=== PATIENT | male | born 1985 | race Caucasian/White ===

== ENCOUNTER 2022-12-09 06:47 | Outpatient (REF) | payer BC, SELFPAY ==
[2022-12-09 11:10] LABS: MANUAL DIFF FLAG NO
[2022-12-09 11:19] LABS: Basophils Absolute Auto 0.1 X10*3/uL (0.0-0.2); Eosinophils Absolute Auto 0.6 X10*3/uL (0.0-0.4); Eosinophils Percent Auto 11.7 % (0-4); Hematocrit 43.1 % (42.0-52.0); Hemoglobin 14.7 g/dl (14.0-18.0); Imm Gran Abs Auto 0.01 X10*3/uL (0.00-0.03); Imm Gran Pct Auto 0.2 % (0.0-0.4); Lymphocytes Absolute Auto 1.9 X10*3/uL (1.2-4.9); Lymphocytes Percent Auto 37.9 % (20-40); Mean Corpuscular HGB Conc 34.1 g/dl (31.0-36.0); Mean Corpuscular Hemoglobin 32.3 pg (27.0-33.0); Mean Corpuscular Volume 94.7 fL (80.0-98.0); Mean Platelet Volume 10.1 fL (9.4-12.4); Monocytes Absolute Auto 0.5 X10*3/uL (0.1-1.2); Monocytes Percent Auto 9.8 % (2-11); Neutrophils Percent Auto 39.4 % (45-73); Platelet Count 219 X10*3/uL (160-400); Red Blood Count 4.55 X10*6/uL (4.60-5.80); Red Cell Distribution Width 11.9 % (11.0-16.0); White Blood Count 5.1 X10*3/uL (4.8-10.8)
[2022-12-09 11:40] LABS: Appearance Urine Turbid; Color Urine Yellow; Glucose Urine UA Negative (Negative); Leukocyte Esterase Urine Negative (Negative); Nitrite Urine Negative (Negative); PH 8.5 (5.0-9.0); Urine Blood Negative (Negative); Urine Ketones Negative (Negative); Urine Protein Negative (Neg-Trace)
[2022-12-09 13:11] LABS: Alanine Aminotransferase 15 U/L (0-40); Albumin Level 4.1 g/dL (3.5-5.0); Alkaline Phosphatase 45 U/L (39-117); Anion Gap 8 (12-20); Aspartate Amino Transferase 16 U/L (5-37); Bilirubin Total 0.7 mg/dL (0.0-1.0); Blood Urea Nitrogen 16 mg/dL (9-16); Carbon Dioxide 30 mmol/L (22-29); Chloride 106 mmol/L (96-108); Cholesterol 152 mg/dL; Estimated Glomerular Filt Rate > 60; Glucose Fasting 94 mg/dL (60-99); HDL Cholesterol 45 mg/dL; LDL Cholesterol Calculated 100 mg/dl; Potassium 4.6 mmol/L (3.3-5.1); Sodium 139 mmol/L (135-145); Total Protein 6.1 g/dL (6.5-8.0); Triglycerides 35 mg/dL
[2022-12-09 13:12] LABS: Creatinine Urine 145.76 mg/dL; Microalbumin Urine < 5.0 mg/L
[2022-12-09 13:30] LABS: TSH reflex Free T4 0.78 uIU/mL (0.32-4.0)
[2022-12-11 04:13] LABS: Syphilis Screen Nonreactive (Nonreactive)
[2022-12-11 04:25] LABS: HBS Num1 90.55 mIU/mL (0-7.99); HBc Num1 0.08 S/CO (0.00-0.79); HIV AB/AG Nonreactive (Nonreactive); HIV Num 1 0.07 S/CO (0.00-0.99); Hepatitis B Core Antibody Nonreactive (Nonreactive); Hepatitis B Surface Antigen Negative (Negative); ~HepC Num1 0.15 S/CO (0.00-0.79); ~Hepatitis B Surface Antibody REACTIVE (Nonreactive); ~Hepatitis C Antibody Nonreactive (Nonreactive)
== END 2022-12-09 06:48 | disposition home or self-care (01) ==
LOC: HO.HMGCLDS 06:47
PROVIDERS: PCP Family Medicine; Visit Provider Family Medicine
DX: Z00.00 Encounter for general adult medical examination without abnormal findings (principal); I10 Essential (primary) hypertension; Z20.2 Contact with and (suspected) exposure to infections with a predominantly sexual mode of transmission
CPT/HCPCS: 36415; 80053; 80061; 81003; 82043; 84443; 85025; 86704; 86706; 86780; 86803; 87340; 87389

== ENCOUNTER 2023-03-07 15:00 | Outpatient (RCR) | payer BC, SELFPAY ==
--- NOTE | 2023-01-11 17:47 | MHC.PT.EP ---
[facility] [place] [facility] [place] Office [place] Office [address] Cristiano Lopez [address] [phone] F: [phone] F: [phone] F: [phone] F: [phone] Physical Therapy Plan of Care Date of Evaluation: Date of Surgery: Diagnosis: B foot and knee pain. Assessment: Pt is a 37 y/o male referred to PT for eval and treat of B foot and knee pain resulting in decreased tolerance for preferred fitness activity of running, standing for duration, as well as squatting, hopping, and jumping activities, hopping and jumping secondary to decreased hip and ankle strength, foot posture, increased B LE tissue tension, and pain. Pt is deemed an appropriate candidate to receive skilled PT services to address their physical impairments in order to improve their functional ability. Frequency and Duration: The patient will be seen 1 x/ wk x 8 wks. Short Term Goals: Initiate home program with evidence of compliance. Improve baseline pain with activity to at most 1-3/10; initial: 2-6/10. Cytopathology Technologist Goals: I with home program. Pt will be able to stand for 1 hour with managed Sx. initial: moderate difficulty. Pt will report no difficulty running on even ground; initial: moderate difficulty. Improve glute med strength by at least 1/2 MMT grade; initial 4/5 B. Treatment Plan: Modalities to reduce pain, spasms and effusion. Manual therapy to restore motion and function. Therapeutic exercise to improve strength and flexibility. Neuromuscular re-education for posture and balance. Therapeutic activities to return to functional activities of daily living. Electronically signed by: Gerardo Melgoza PT. Please sign and return to therapist. Thank you for your referral.
--- NOTE | 2023-06-01 10:47 | MHC.PT.DC ---
[facility] [place] [facility] [place] Office [place] Office [address] Cristiano Lopez [address] [phone] F: [phone] F: [phone] F: [phone] F: [phone] Physical Therapy Discharge Report Diagnosis: B foot and knee pain. Date of Surgery: Date of Evaluation: 01/11/23 Date of Discharge: 06/01/23 Treatments to Date: 4 Cancellations to Date: No Shows to Date: Discharge Status: Improved Function Independent with HEP Patient Elected to Stop Discharge Summary: Pt did not attend his last visit for final assessment Last Tx note below. 03/07: Reports he has been more consistent with his program and notices his feet and running has been more comfortable. 1 visit to DC . No adverse effects. to Tx. Electronically signed by: Gerardo Melgoza PT. Please sign and return to therapist. Thank you for your referral.
== END 2023-06-01 10:48 | disposition home or self-care (01) ==
LOC: HO.PTCHIC 15:00
PROVIDERS: PCP Family Medicine; Visit Provider Family Medicine
DX: M79.671 Pain in right foot (principal); M79.672 Pain in left foot; M25.561 Pain in right knee; M25.562 Pain in left knee
CPT/HCPCS: 97110; 97112; 97161

== ENCOUNTER 2024-06-06 10:47 | Outpatient (AMB) | payer BC, SELFPAY ==
--- NOTE | 2024-06-06 10:51 | MHC.PC.OV ---
Vital Signs 06/06/24 10:53 Height 6 ft 3 in Weight 207 lb 2 oz BMI 25.9 BP 110/66 Blood Pressure Location Lt brachial Position Sitting Respiration 16 Pulse 69 Pulse Source Pulse Oximeter Temp 97.7 F Temp Source Tympanic Pulse Oximetry (%) 96 Oxygen Delivery Method Room Air Intake Visit Reasons: Bruise on shoulder Intake Note: bruise rt bicep Allergies shellfish Allergy (Intermediate, Uncoded 12/18/22 16:10) throat swelling Tobacco use date assessed: 12/18/22 HPI Bruise on shoulder HPI Details 38 y/o male presents today with complaints of a bruise on his R biceps. He notes he had woken up with this. Reports some slight discomfort. Does not remember an exact moment he may have hurt his arm. He notes bruise showed up just over a week ago. Discomfort started in November. HPI Comments History of Present Illness Details Documentation assistance for Loi Groves MD, was provided by Jim Mendosa,? Parachute Panel Joiner on 06/06/2024 at 11:06 AM EST. I, Dr. Groves, have read, observed, and verified documentation. [facility] Medical History No pertinent past medical history Surgical History H/O left inguinal hernia repair Social History Patient Tobacco Use Status: Never used Tobacco e-Cigarette/Vaping Use: Never Used Second Hand Smoke Exposure: No service: No Current occupational status: employed Current occupational exposures/hazards: No Cognitive needs: No Hearing needs: No Vision needs: No Questionnaire PROSPER-7 AMB Questionnaire PROSPER-7 Date PROSPER - 7 assessed: 09/28/22 Source: Developed by Drs. Farrukh Johnson, Karen Hays, Boone Dailey and colleagues, with an educational kiana from [employer]. Review of Systems Const Denies chills, Denies fatigue, Denies fever(s), Denies headache(s) and Denies weakness ENT Denies dizziness and Denies headache(s) Card Denies dyspnea Resp Denies cough, Denies dyspnea, Denies wheezing and Denies other (shortness of breath) Musc Details: R arm discomfort Denies numbness and Denies tingling Neuro Denies dizziness, Denies headache(s), Denies numbness, Denies tingling and Denies weakness Psych Denies anxiety and Denies depression Endo Denies fatigue Aller/Immun Denies wheezing Physical exam (Primary Care) Vital Signs: Last Vital Signs Temp 97.7 F 06/06/24 10:53 Pulse 69 06/06/24 10:53 Resp 16 06/06/24 10:53 BP 110/66 06/06/24 10:53 Pulse Ox 96 06/06/24 10:53 Oxygen Delivery Method Room Air 06/06/24 10:53 BMI result Body Mass Index 25.9 Tobacco/Smoking Status: Tobacco use Status Tobacco use date assessed 12/18/22 06/06/24 10:55 Patient Tobacco Use Status Never used Tobacco 06/06/24 10:55 e-Cigarette/Vaping Use Never Used 06/06/24 10:55 Const General: well developed; No acute distress Nutritional Appearance: well nourished Orientation/consciousness: patient oriented x3 HENMT Head: Yes normocephalic and Yes atraumatic Eyes General: appearance normal, both eyes and all related structures Pupils: Equal, round and reactive pupils present EOM: EOMs intact bilaterally Resp Effort & Inspection: normal respiratory effort Neuro General: patient oriented x3 and gait normal Cranial nerves: Yes Equal, round and reactive pupils present Psych Affect: normal affect Assessment and Plan Assessment & Plan (1) Strain of right upper arm: Code(s): S46.911A - Strain of unspecified muscle, fascia and tendon at shoulder and upper arm level, right arm, initial encounter Plan: Mild?tenderness?over?insertion?of?short?head?of?biceps?at?coracoid?process?with?some?dependent?bruising. Patient?is?able?to?flex?arm?at?elbow?and?shoulder - this?does?not?appear?to?be?a?complete?rupture Can?use?ice?and?NSAIDs Will?check?x-ray?to?rule?out?other?process Start?physical?therapy If?not?improving?or?worsens,?will?refer?to?ortho Orders: Orders XR shoulder RT min 2V Today S46.911A - Strain of unspecified muscle, fascia and tendon at shoulder and upper arm level, right arm, initial encounter PT Evaluation and Treatment Today S46.911A - Strain of unspecified muscle, fascia and tendon at shoulder and upper arm level, right arm, initial encounter Coding Level of Care Code Est Pt Level 3 (29741) Diagnoses Strain of right upper arm S46.911A
[2024-06-06 10:53] VITALS: BP 110/66; PULSE 69; RESP 16; TEMP 36.5; O2SAT 96; BMI 25.9
== END 2024-06-06 11:08 | disposition home or self-care (01) ==
PROVIDERS: PCP Family Medicine; Visit Provider Family Medicine
DX: S46.911A Strain of unspecified muscle, fascia and tendon at shoulder and upper arm level, right arm, initial encounter (principal)
CPT/HCPCS: 99213

== ENCOUNTER 2024-12-17 15:57 | Outpatient (AMB) | payer BC, SELFPAY ==
--- NOTE | 2024-12-17 16:10 | MHC.PC.OV ---
Vital Signs 12/17/24 16:17 Height 6 ft 1 in Weight 203 lb BMI 26.8 BP 120/78 Blood Pressure Location Lt brachial Position Sitting Respiration 14 Pulse 53 Pulse Source Pulse Oximeter Temp 97.6 F Temp Source Oral Pulse Oximetry (%) 97 Oxygen Delivery Method Room Air Intake Visit Reasons: CPE with f/u labs and health maint. Intake Note: cpe pt did not get labs he was advised to get fasting labs at his convenience Tour Coordinator Required: No Allergies shellfish Allergy (Intermediate, Uncoded 12/18/22 16:10) throat swelling Medication List - Last Reconciled 12/17/24 by Loi Groves MD albuterol sulfate 90 mcg/actuation (Ventolin HFA) 2 puffs inhalation Q4-6H PRN 30 days dextroamphetamine-amphetamine 20 mg ER 1 cap PO QAM Tobacco use date assessed: 12/17/24 Dental Screening Dental Screen Date: 12/17/24 Did you have a dental visit in the last 12 months?: Yes Did you have a dental problem in the last 6 months where you did not have access to dental care?: No Was dental information given to patient?: Yes HPI CPE with f/u labs and health maint. HPI Details 39 y/o male presents for a CPE with f/u labs and health maintenance. No recent labs to review. Reports L 5th finger dislocation playing soccer. [facility] Medical History No pertinent past medical history Surgical History H/O left inguinal hernia repair Social History Patient Tobacco Use Status: Never used Tobacco e-Cigarette/Vaping Use: Never Used Second Hand Smoke Exposure: No service: No Current occupational status: employed Current occupational exposures/hazards: No Cognitive needs: No Hearing needs: No Vision needs: No Questionnaire PHQ-9 Over the last 2 weeks, how often have you been bothered by any of the following problems? 1. Little interest or pleasure in doing things: not at all 2. Feeling down, depressed, or hopeless: not at all 3. Trouble falling or staying asleep, or sleeping too much: not at all 4. Feeling tired or having little energy: not at all 5. Poor appetite or overeating: not at all 6. Feeling bad about yourself - or that you are a failure or have let yourself or your family down: not at all 7. Trouble concentrating on things, such as reading the newspaper or watching television: not at all 8. Moving or speaking so slowly that other people could have noticed. Or the opposite - being so fidgety or restless that you have been moving around a lot more than usual: not at all 9. Thoughts that you would be better off or of hurting yourself in some way: not at all Total score: 0 Depression Screening Interpretation: Negative Depression Screening Done: Yes 54219 - PHQ-9 Billing: Yes Source: Developed by Drs. Farrukh Johnson, Karen Hays, Boone Dailey and colleagues, with an educational kiana from [employer]. Thrive Questionnaire Date Thrive assessed: 12/17/24 I am a: Patient What is your living situation today?: I have a steady place to live Within the past 12 months, did the food you bought not last and you didn't have the money to get more?: Never true Within the past 12 months, did you worry whether your food would run out before you got money to buy more?: Never true Do you have trouble paying for medicines?: No Do you have trouble getting transportation to medical appointments?: No Do you have trouble paying your heating and electricity bill?: No Do you have trouble taking care of your child, family member or friend?: No Do you have trouble with day-to-day activities such as bathing, preparing meals, shopping, managing finances, etc.?: No Are you currently unemployed and looking for a job?: No Are you interested in more education?: No Please select the resources that you would like help with: None Currently or been in a relationship where the following occur: No concerns reported THRIVE Score: 0 AUDIT C Alcohol Use Questionnaire (AUDIT-C) 1. How often do you have a drink containing alcohol?: Never 2. How many drinks containing alcohol do you have on a typical day when you are drinking?: 1 or 2 3. How often do you have six or more drinks on one occasion?: Never Total Score: 0 Score Reviewed/Action Taken: Yes PROSPER-7 AMB Questionnaire PROSPER-7 Date PROSPER - 7 assessed: 12/17/24 Feeling nervous, anxious, or on edge: 0 = Not at all Not being able to stop or control worryin = Not at all Worrying too much about different things: 0 = Not at all Trouble relaxin = Not at all Being so restless that it is hard to sit still: 0 = Not at all Becoming easily annoyed or irritable: 0 = Not at all Feeling afraid as if something awful might happen: 0 = Not at all Total PROSPER-7 score (0-4 normal; 5-9 mild; 10-14 moderate; 15-21 severe): 0 Source: Developed by Drs. Farrukh Johnson, Karen Hays, Boone Dailey and colleagues, with an educational kiana from [employer]. PROSPER-7 Assessment Billing PROSPER-7 Assessment Tool: PROSPER-7 Assessment 32666 Review of Systems Const Denies chills, Denies fatigue, Denies fever(s), Denies headache(s) and Denies weakness Eyes Denies change in vision ENT Denies dizziness, Denies headache(s), Denies hearing loss, Denies nasal congestion, Denies sinus pain, Denies sinus pressure and Denies sore throat Card Denies chest pain, Denies lightheadedness, Denies dyspnea and Denies other (palpitations) Resp Denies cough, Denies dyspnea and Denies wheezing GI Denies abdominal pain, Denies melena, Denies hematochezia, Denies change in bowel habits, Denies dyspepsia and Denies nausea Denies hematuria and Denies dysuria Musc Denies abnormal gait, Denies myalgias, Denies arthralgias, Denies numbness and Denies tingling Skin/Breast Denies rash, Denies unusual bruising and Denies wounds Neuro Denies abnormal gait, Denies dizziness, Denies headache(s), Denies memory loss, Denies numbness, Denies Sensory deficit (Neuro), Denies tingling and Denies weakness Psych Denies anxiety, Denies depression and Denies memory loss Endo Denies cold intolerance, Denies fatigue, Denies heat intolerance, Denies polydipsia and Denies polyuria Irvin/Lymph Denies easy bleeding and Denies easy bruising Aller/Immun Denies wheezing Physical exam (Primary Care) Vital Signs: Last Vital Signs Temp 97.6 F 12/17/24 16:17 Pulse 53 12/17/24 16:17 Resp 14 12/17/24 16:17 BP 120/78 12/17/24 16:17 Pulse Ox 97 12/17/24 16:17 Oxygen Delivery Method Room Air 12/17/24 16:17 BMI result Body Mass Index 26.8 Tobacco/Smoking Status: Tobacco use Status Tobacco use date assessed 12/17/24 12/17/24 16:13 Patient Tobacco Use Status Never used Tobacco 12/17/24 16:13 e-Cigarette/Vaping Use Never Used 12/17/24 16:13 PHQ-9: PHQ-9 Score PHQ-9: Total score 0 12/17/24 16:13 Depression Screening Interpretation: Negative Thrive Assessment: Date of Thrive Assessment Date Thrive assessed 12/17/24 12/17/24 16:13 Currently or been in a relationship where the following occur: No concerns reported Const General: no acute distress, well developed, alert and awake Nutritional Appearance: well nourished Orientation/consciousness: patient oriented x3 HENMT Head: Yes normocephalic and Yes atraumatic Ears: hearing grossly normal bilaterally and TM's normal bilaterally General nose exam: Normal external nose present and Normal nares present Mouth: Normal oral and palatal mucosa present and moist mucous membranes Teeth and gingiva: dentition normal Throat: Yes posterior oropharynx normal Eyes General: appearance normal, both eyes and all related structures Pupils: Equal, round and reactive pupils present and Pupil accommodation reflex normal EOM: EOMs intact bilaterally Neck Neck: Yes normal visual inspection, Yes no lymphadenopathy and Yes trachea midline Thyroid: Thyroid normal Carotids: no bruits Lymphatic: no lymphadenopathy noted Chest Chest palpation & inspection: normal inspection of the chest Resp Effort & Inspection: normal respiratory effort Auscultation: clear to auscultation bilaterally Cardio Rate: regular rate Rhythm: regular rhythm Heart sounds: S1 normal heart sound present, S2 normal heart sound present, no gallops, no murmurs and no rubs Bruits: no abdominal aortic bruits and no carotid bruits GI Palpation (GI): No Abdominal aortic bruit present, Soft to palpation, nontender, No hepatosplenomegaly present and No Rebound tenderness present Auscultation: normal bowel sounds General: Yes no CVA tenderness Back/Spine/Pelvis Back: no CVA tenderness Cervical Spine: cervical ROM normal and No Cervical spine tenderness Thoracic/Lumbar Spine: thoraco-lumbar ROM normal, No pain with thoraco-lumbar ROM, No thoracic spinal tenderness and No lumbar spinal tenderness Skin Other: 5 mm melanotic lesion at posterior proximal calf Lesions: no lesions Rashes: no rashes Trauma: no lacerations or abrasions Wounds: no wounds Nails: normal Neuro General: patient oriented x3 Cranial nerves: Yes Equal, round and reactive pupils present Cognition (Neuro): normal cognition Gait exam (Neuro): Normal gait present Motor exam (neuro): 5/5 motor strength present throughout Sensory Exam: No Sensory deficit (Neuro) Deep tendon reflexes (DTR's): Right patellar reflex intensity grade: 2+ and Left patellar reflex intensity grade: 2+ Extrem General: Yes normal to inspection and No edema Psych Appearance: grossly normal Affect: normal affect Attitude: cooperative Thought process: Normal thought process present Coding Level of Care Code Est Pt Level 3 (13273) Est Pt Prev Care 18-39y(21578) Diagnoses Adult general medical exam Z00.00 Difficulty concentrating R41.840 Asthma J45.909 Family planning Z30.09 Urinary hesitancy R39.11 Dislocation, finger S63.259A Neoplasm of uncertain behavior of skin D48.5 Abdominal pain R10.9 Additional Codes PROSPER-7 Assessment Billing - PROSPER-7 Assessment Tool: PROSPER-7 Assessment [id number] ([id number]) PHQ-9 - 43692 - PHQ-9 Billing: Yes ([id number]) Assessment & Plan Assessment & Plan (1) Adult general medical exam: Code(s): Z00.00 - Encounter for general adult medical examination without abnormal findings Category: Medical Plan: 39-year-old?male?presents?for?complete?physical?exam Encouraged?healthy?diet?with?lifestyle?and?exercise (2) Difficulty concentrating: Code(s): R41.840 - Attention and concentration deficit Category: Medical Plan: Patient?has?a?provider?for?Adderall Stable (3) Asthma: Code(s): J45.909 - Unspecified asthma, uncomplicated Category: Medical Plan: Somewhat?worsened?asthma?lately. Avoid?triggers Pre?treat?before?exercise Humidified?air Discontinue?vaping (4) Family planning: Code(s): Z30.09 - Encounter for other general counseling and advice on contraception Category: Social Hx Plan: Patient?would?like?referral?to?urology?for?consideration?of?vasectomy-referred (5) Urinary hesitancy: Code(s): R39.11 - Hesitancy of micturition Category: Medical Plan: Can?follow-up?with?Urology I?am?checking?PSA?level (6) Dislocation, finger: Code(s): S63.259A - Unspecified dislocation of unspecified finger, initial encounter Category: Medical Plan: Traumatic?dislocation?of?left?5th?finger?and?subsequent?spontaneous?dislocations Referred?to?hand?surgeon (7) Neoplasm of uncertain behavior of skin: Code(s): D48.5 - Neoplasm of uncertain behavior of skin Category: Medical Plan: 0.5?cm melanotic?lesion?at?posterior?proximal?calf Referred?to?dermatology (8) Abdominal pain: Code(s): R10.9 - Unspecified abdominal pain Category: Medical Plan: Abdominal?pain?and?history?of?hernia?repair No?definitive?hernia?is?palpated?however?does?have?some?abnormality?of?lower?abdominal?wall - possibly?secondary?to?repair Check?ultrasound May?need?referral?to?General?surgery Orders: Orders US pelvic limited Today R10.9 - Unspecified abdominal pain Referrals Urology Referral Z30.09 - Encounter for other general counseling and advice on contraception Hand Surgery Referral S63.259A - Unspecified dislocation of unspecified finger, initial encounter Dermatology Referral D48.5 - Neoplasm of uncertain behavior of skin Medications: New famotidine 40 mg PO BEDTIME 30 days 30 tabs 0RF
[2024-12-17 16:17] VITALS: BP 120/78; PULSE 53; RESP 14; TEMP 36.4; O2SAT 97; BMI 26.8
--- OUTSIDE RECORDS SUMMARY | 2024-12-17 19:05 | XMS_ITS | Clinical Summary ---
[facility] Organization [facility] Address [address] [place] [address] Care Team Providers Care Twister In Name Role Phone Maykel Beatty MD Primary Care Provider [phone] Surgical History Surgery Date Site/Laterality Comments OTHER SURGICAL HISTORY 1999 Right PROCEDURE: HISTORICAL EAR SURGERY; COMMENT: right, Dr. Burt Bacon HERNIA REPAIR 11/2019 Left PROCEDURE: HISTORICAL HERNIA REPAIR/ING CHOLECYSTECTOMY PROCEDURE: [place] LAPAROSCOPY SURG CHOLECYSTECTOMY Medical History Medical History Date Comments Left inguinal hernia DX:Left ing uinal hernia Family History Medical History Relation Name Comments No Known Problems Father No Known Problems Mother Relation Name Status Comments Father Alive Mother Alive Social History Tobacco Use Types Packs/Day Years Used Date Smoking Tobacco: Former Smokeless Tobacco: Never Alcohol Use Standard Drinks/Week Comments No 0 (1 standard drink = 0.6 oz pur e alcohol) Sex and Gender Information Value Date Recorded Sex Assigned at Not on file Legal Sex Male 5:25 AM EST Gender Identity Not on file Sexual Orientation Not on file Obstetrics History Plan of Treatment Health Maintenance Due Date Last Done Comments DTaP,Tdap,and Td Vaccines (8 - Td or Tdap) 06/03/2018 06/03/2008, 06/20/2000, 05/30/1993, Additional history exists Cholesterol Screening (Lipid Panel) 09/17/2022 HIV Screening 09/17/2022 COVID-19 Vaccine ( season) 2024 Influenza Vaccine (#1) 2024 HIB Vaccines Completed 10/03/1989 IPV Vaccines Completed 05/30/1993, 09/15, 10/03/1989, Additional history exists MMR Vaccines Completed 08/16/1998, 01/08/1989 Hepatitis B Vaccines Completed 06/20/2000, 10/27/1999, 07/20/1999 Meningococcal ACWY Vaccine Completed 05/12/2014, HPV Vaccines Aged Out No longer eligi ble based on patient's age to complete this topic Hepatitis A Vaccines Aged Out No long er eligible based on patient's age to complete this topic Meningococcal B Vacine Aged Out No lo nger eligible based on patient's age to complete this topic Pneumococcal Vaccine: Pediatrics (0 to 5 Years) and At-Risk Patients (6 to 64 Years) Aged Out No longer eligible based on patient's age to complete this topic RSV Immunization Patients Under 20 months Aged Out No longer eligible based on patient's age to complete this topic Varicella Vaccines Aged Out No longer eligible based on patient's age to complete this topic Care Teams Twister In Relationship Specialty Start Date End Date Maykel Beatty MD PCP - General Internal Medicine 03/12/20
== END 2024-12-17 17:04 | disposition home or self-care (01) ==
PROVIDERS: PCP Family Medicine; Visit Provider Family Medicine
DX: Z00.00 Encounter for general adult medical examination without abnormal findings (principal); R41.840 Attention and concentration deficit; J45.909 Unspecified asthma, uncomplicated; R39.11 Hesitancy of micturition; S63.259A Unspecified dislocation of unspecified finger, initial encounter; D48.5 Neoplasm of uncertain behavior of skin; R10.9 Unspecified abdominal pain

== ENCOUNTER → 2024-12-17 15:57 | Outpatient (BNVA) | payer BC, SELFPAY | PROVIDERS: PCP Family Medicine; Visit Provider Family Medicine | DX: Z00.00 Encounter for general adult medical examination without abnormal findings (principal); R41.840 Attention and concentration deficit; J45.909 Unspecified asthma, uncomplicated; R39.11 Hesitancy of micturition; S63.257A Unspecified dislocation of left little finger, initial encounter; D48.5 Neoplasm of uncertain behavior of skin; R10.9 Unspecified abdominal pain | CPT/HCPCS: 96127 ==

== ENCOUNTER 2024-12-24 07:55 | Outpatient (AMB) | payer BC, SELFPAY ==
--- OUTSIDE RECORDS SUMMARY | 2024-12-24 07:58 | XMS_ITS | Clinical Summary ---
Author Organization [facility] it Address [address] [place] [address] Care Team Providers Care Automobile Or Truck Rental Dispatcher Name Role Phone Maykel Beatty MD Primary Care Provider [phone] Surgical History Surgery Date Site/Laterality Comments OTHER SURGICAL HISTORY 1999 Right PROCEDURE: HISTORICAL EAR SURGERY; COMMENT: right, Dr. Burt Bacon HERNIA REPAIR 11/2019 Left PROCEDURE: HISTORICAL HERNIA REPAIR/ING CHOLECYSTECTOMY PROCEDURE: [place] LAPAROSCOPY SURG CHOLECYSTECTOMY Medical History Medical History [...] age to complete this topic Care Teams Automobile Or Truck Rental Dispatcher Relationship Specialty Start Date End Date Maykel Beatty MD PCP - General Internal Medicine 03/12/20
[2024-12-24 08:09] VITALS: BMI 26.8
--- NOTE | 2024-12-24 08:09 | MHC.OFFVIS ---
Vital Signs 12/24/24 08:09 Height 6 ft 1 in Weight 203 lb BMI 26.8 Intake Visit Reasons: FC- dislocation of left 5th finger-DOI 12/13/24 Intake Note: Jacob 39 yr old right hand dominant male presents today for a new patient visit for for his left hand small finger injury from DOI 12/13/24. States his small finger was dislocated in his goalie glove and he popped it back. Seen in Urgent care the following day, where xrays were done he was told he had no fracture. Also seen with his PCP who referred to orthopedics. He was given a splint. When he takes the splint off to shower and if he bumps his small finger will pop out and he has to keep putting back into place. Denies numbness, tingling. He did mentioned his locks like a trigger finger. Allergies shellfish Allergy (Intermediate, Uncoded 12/24/24 08:18) throat swelling HPI HPI FC- dislocation of left 5th finger-DOI 12/13/24: Details: Jacob is a 39 year old right hand dominant man who initially dislocated his left small finger PIP joint on 12/13/24 while playing goalie in hockey. He pulled it back into place, and was subsequently seen in urgent care and given a finger splint. He believes his finger did dislocate again, and he pulled it back into place. He has been wearing a finger splint since that time. He denies any numbness or tingling. 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 Current occupational exposures/hazards: No Cognitive needs: No Hearing needs: No Vision needs: No Review of Systems Const All systems reviewed & are unremarkable except as noted in HPI and below Physical Exam Vital Signs: BMI result Body Mass Index 26.8 Const General: cooperative, healthy appearing and no acute distress Orientation/consciousness: patient oriented x3 HEENT Head: Yes normocephalic and Yes atraumatic Eyes EOM: EOMs intact bilaterally Resp Effort & Inspection: normal respiratory effort and able to speak in complete sentences Cardio Jugular venous distension: no JVD Skin General skin exam: turgor normal Rashes: no rashes Neuro General: patient oriented x3 Extrem Other: Evaluation of Left Upper Extremity: The patient is alert, oriented, and in no acute distress Neuro: Median, Ulnar, Radial nerves motor and sensory intact and sensation is normal to the tips of all digits Vascular: Cap refill brisk His left small finger PIP joint was mildly tender to palpation and only mildly swollen. No lacerations or evidence of open injury FDP and FDS tendons were carefully checked and intact. He had good active extension of the finger We carefully brought the finger closed to a fist and open into full extension several times and there was no problem with recurrent dislocation. I had him bring the fingers close to a tight fist with good strength, and then brought back into extension without any issues Radiographs: 3 views of the left hand, with attention to the small finger, were taken and viewed by me today in clinic. They show no fractures or dislocation Psych Appearance: grossly normal Affect: normal affect Attitude: cooperative Assessment & Plan Assessment & Plan (1) Dislocation of proximal interphalangeal joint of left little finger: Code(s): S63.287A - Dislocation of proximal interphalangeal joint of left little finger, initial encounter Category: Medical Plan Assessment & Plan: 1. Left small finger PIP dislocation DOI: 12/13/24 while playing soccer It sounds like he had at least 1 episode of repeat dislocation after the initial injury. I educated him about this condition His small finger PIP joint appears to be on exam today in clinic. We brynn tape the small finger to the ring finger and I educated him about brynn taping and activity modification. He knows he should not play basketball or be the goalie while playing soccer for at least 6 weeks. He can brynn tape his finger and play soccer not as a goalie. He will work on gentle range of motion at home. He knows to follow up with us if he has any issues or concerns. Otherwise follow up p.r.n. Scribed for Kathrine Oropeza MD by Pablo Stevens medical voucher clerk, on 12/24/24 at [ ], EST. Orders: Orders XR hand LT min 3V Today M79.642 - Pain in left hand Coding Level of Care Code New Pt Level 3 (75805) Diagnoses Dislocation of proximal interphalangeal joint of left little finger S63.287J
== END 2024-12-24 08:55 | disposition home or self-care (01) ==
LOC: HO.HOS 07:56
PROVIDERS: PCP Family Medicine; Visit Provider Orthopaedic Surgery
DX: S63.287A Dislocation of proximal interphalangeal joint of left little finger, initial encounter (principal)
CPT/HCPCS: 99203

== ENCOUNTER → 2024-12-24 07:58 | Outpatient (BNV) | payer BC, SELFPAY | PROVIDERS: Visit Provider Radiology Diagnostic Radiology | DX: M79.642 Pain in left hand (principal) | CPT/HCPCS: 73130 ==

== ENCOUNTER 2024-12-24 08:37 | Outpatient (REF) | payer BC, SELFPAY ==
--- NOTE | ~2024-12-24 | XR_ITS ---
EXAMINATION: XR HAND 3 OR MORE VIEWS LEFT HISTORY: M79.642 - Pain in left hand COMPARISON: There are no prior studies available for comparison. FINDINGS: Three views of the left hand are submitted. Osseous mineralization is normal. There is no fracture or dislocation. The joint spaces are preserved. The soft tissues are unremarkable. XR/XR hand LT min 3V IMPRESSION: Unremarkable examination of the left hand. Electronically signed by: Farrukh Mcadams MD 12/24/2024 08:14 AM EDT
--- OUTSIDE RECORDS SUMMARY | 2024-12-25 09:18 | XMS_ITS | Clinical Summary ---
[facility] it Address [address] [place] [address] Care Team Providers Care Abrasive Grinder Name Role Phone Maykel Beatty MD Primary Care Provider [phone] Surgical History Surgery Date Site/Laterality Comments OTHER SURGICAL HISTORY 1999 Right PROCEDURE: HISTORICAL EAR SURGERY; COMMENT: right, Dr. Burt Bacon HERNIA REPAIR 11/2019 Left PROCEDURE: HISTORICAL HERNIA REPAIR/ING CHOLECYSTECTOMY PROCEDURE: [place] LAPAROSCOPY SURG CHOLECYSTECTOMY Medical History Medical History [...] age to complete this topic Care Teams Abrasive Grinder Relationship Specialty Start Date End Date Maykel Beatty MD PCP - General Internal Medicine 03/12/20
== END 2024-12-24 08:38 | disposition home or self-care (01) ==
LOC: HO.HOSX 08:37
PROVIDERS: Visit Provider Orthopaedic Surgery
DX: M79.642 Pain in left hand (principal)
CPT/HCPCS: 73130

== ENCOUNTER 2024-12-26 07:48 | Outpatient (REF) | payer BC, SELFPAY ==
--- OUTSIDE RECORDS SUMMARY | 2024-12-26 07:51 | XMS_ITS | Clinical Summary ---
Author Organization [facility] Address [address] [place] [address] Care Team Providers Care Instructor Kindergarten Name Role Phone Maykel Beatty MD Primary Care Provider [phone] Surgical History Surgery Date Site/Laterality Comments OTHER [...] age to complete this topic Care Teams Instructor Kindergarten Relationship Specialty Start Date End Date Maykel Beatty MD PCP - General Internal Medicine 03/12/20
[2024-12-26 11:25] LABS: Appearance Urine Clear; Color Urine Yellow; Glucose Urine UA Negative (Negative); Leukocyte Esterase Urine Negative (Negative); Nitrite Urine Negative (Negative); PH 6.5 (5.0-9.0); Specific Gravity - Urine 1.025 (1.005-1.025); Urine Blood Negative (Negative); Urine Ketones Negative (Negative); Urine Protein Negative (Neg-Trace)
[2024-12-26 12:22] LABS: Creatinine Urine 181.08 mg/dL; Microalbum/Creatinine Ratio Ur 3.3 ug/mg cr (<30)
[2024-12-26 12:37] LABS: Alanine Aminotransferase 21 U/L (0-40); Albumin Level 4.3 g/dL (3.5-5.0); Alkaline Phosphatase 50 U/L (39-117); Anion Gap 10 (12-20); Aspartate Amino Transferase 23 U/L (5-37); Bilirubin Total 0.6 mg/dL (0.0-1.0); Blood Urea Nitrogen 17 mg/dL (9-16); Carbon Dioxide 28 mmol/L (22-29); Chloride 105 mmol/L (96-108); Cholesterol 140 mg/dL (<200); Estimated Glomerular Filt Rate > 60; Glucose Fasting 108 mg/dL (60-99); HDL Cholesterol 43 mg/dL (>40); LDL Cholesterol Calculated 88 mg/dL (<100); Potassium 4.1 mmol/L (3.3-5.1); Sodium 139 mmol/L (135-145); Triglycerides 45 mg/dL (<150)
[2024-12-26 12:42] LABS: TSH reflex Free T4 1.23 uIU/mL (0.32-4.0)
== END 2024-12-26 07:49 | disposition home or self-care (01) ==
LOC: HO.WFDLDS 07:48
PROVIDERS: Visit Provider Family Medicine
DX: Z00.00 Encounter for general adult medical examination without abnormal findings (principal); S46.911A Strain of unspecified muscle, fascia and tendon at shoulder and upper arm level, right arm, initial encounter; I10 Essential (primary) hypertension
CPT/HCPCS: 36415; 80053; 80061; 81003; 82043; 82570; 84443

== ENCOUNTER 2025-01-26 10:37 | Outpatient (AMB) | payer BC, SELFPAY ==
--- NOTE | 2025-01-26 10:34 | A.OFFPC_ITS ---
Intake Visit Reasons: f/u CPE-labs via telemedicine Cupola Liner Helper Required: No Allergies shellfish Allergy (Intermediate, Uncoded 12/24/24 08:18) throat swelling Tobacco use date assessed: 12/17/24 Dental Screening Dental Screen Date: 12/17/24 HPI f/u CPE-labs via telemedicine HPI Details 39 y/o male presents to f/u labs via tel emedicine. Labs drawn 12/26/24. Reviewed labs with pt. Fasting glucose 108. Rest of his labs are fine. 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 Current occupational exposures/hazards: No Cognitive needs: No Hearing needs: No Vision needs: No Questionnaire Thrive Questionnaire Date Thrive assessed: 12/17/24 I am a: Patient What is your living situation today?: I have a steady place to live Within the past 12 months, did the food you bought not last and you didn't have the money to get more?: Never true Within the past 12 months, did you worry whether your food would run out before you got money to buy more?: Never true Do you have trouble paying for medicines?: No Do you have trouble getting transportation to medical appointments?: No Do you have trouble paying your heating and electricity bill?: No Do you have trouble taking care of your child, family member or friend?: No Do you have trouble with day-to-day activities such as bathing, preparing meals, shopping, managing finances, etc.?: No Are you currently unemployed and looking for a job?: No Are you interested in more education?: No Please select the resources that you would like help with: None Currently or been in a relationship where the following occur: No concerns reported THRIVE Score: 0 PROSPER-7 AMB Questionnaire PROSPER-7 Date PROSPER - 7 assessed: 12/17/24 Source: Developed by Drs. Farrukh Johnson, Karen Hays, Boone Dailey and colleagues, with an educational kiana from [employer]. Review of Systems Const Denies chills, Denies fatigue, Denies fever(s), Denies headache(s) and Denies weakness ENT Denies dizziness and Denies headache(s) Card Denies dyspnea Resp Denies cough, Denies dyspnea, Denies wheezing and Denies other (shortness of breath) Musc Denies numbness and Denies tingling Neuro Denies dizziness, Denies headache(s), Denies numbness, Denies tingling and Denies weakness Psych Denies anxiety and Denies depression Endo Denies fatigue Aller/Immun Denies wheezing Physical exam (Primary Care) Tobacco/Smoking Status: Tobacco use Status Tobacco use date assessed 12/17/24 01/26/25 10:34 Patient Tobacco Use Status Never used Tobacco 01/26/25 10:34 e-Cigarette/Vaping Use Never Used 01/26/25 10:34 Thrive Assessment: Date of Thrive Assessment Date Thrive assessed 12/17/24 01/26/25 10:34 Currently or been in a relationship where the following occur: No concerns reported Telehealth Telehealth Telehealth Platform: Telephone Location of provider rendering services: practice address Location of patient: address on file Patient Identification confirmed using: Name, : Yes Telehealth method: voice only Patient verbally consented to treatment: Yes Patient verbally consented to billing insurance company: Yes Patient informed of any privacy concerns related to visit: Yes Minutes spent on Phone/Video with Pt.: 6 Coding Level of Care Code Tele Est Pt Level 2 (87397) Diagnoses Elevated fasting blood sugar R73.01 Screening for prostate cancer Z12.5 Family planning Z30.09 Dislocation of proximal interphalangeal joint of left little finger S63.287A Abdominal pain R10.9 Assessment & Plan Assessment & Plan (1) Elevated fasting blood sugar: Code(s): R73.01 - Impaired fasting glucose Category: Medical Plan: Will?repeat?fasting?blood?sugar?as?well?as?an?A1c?test Will?discuss?at?follow-up?telemedicine?appointment (2) Screening for prostate cancer: Code(s): Z12.5 - Encounter for screening for malignant neoplasm of prostate Category: Medical Plan: Patient?requested?PSA?level?and?has?complaint?of?hesitancy Will?check?PSA He?has?an?upcoming?appointment?for consult?for?vasectomy?with?Urology?and?would?adjust?referral?if?needed. (3) Family planning: Code(s): Z30.09 - Encounter for other general counseling and advice on contraception Category: Social Hx Plan: As?above,?has?appointment?with?Urology (4) Dislocation of proximal interphalangeal joint of left little finger: Code(s): S63.287A - Dislocation of proximal interphalangeal joint of left little finger, initial encounter Category: Medical Plan: Patient?was?seen?by?the?hand?specialist. Recommendations?were?follow-up?but?patient?says?his?in?fingers?still?hurting He?should?call?specialist?back?and?follow-up. (5) Abdominal pain: Code(s): R10.9 - Unspecified abdominal pain Category: Medical Plan: Patient?has?an?ultrasound?rule?out?hernia Will?review?with?patient?at?upcoming?follow-up?telemedicine?appointment. Orders: Orders Prostate Specific Antigen Scr Today R39.11 - Hesitancy of micturition, Z12.5 - Encounter for screening for malignant neoplasm of prostate Hemoglobin A1c Today R73.01 - Impaired fasting glucose Comprehensive [place]. Panel Fast Today R73.01 - Impaired fasting glucose, Z00.00 - Encounter for general adult medical examination without abnormal findings
--- OUTSIDE RECORDS SUMMARY | 2025-01-26 12:16 | XMS_ITS | Clinical Summary ---
Author Organization [facility] Address [address] [place] [address] Care Team Providers Care Transactional Attorney Name Role Phone Maykel Beatty MD Primary Care Provider [phone] Surgical History Surgery Date Site/Laterality Comments OTHER SURGICAL HISTORY 1999 Right PROCEDURE: HISTORICAL EAR SURGERY; COMMENT: right, Dr. Burt Bacon HERNIA REPAIR 11/2019 Left PROCEDURE: HISTORICAL HERNIA REPAIR/ING CHOLECYSTECTOMY PROCEDURE: [place] LAPAROSCOPY SURG CHOLECYSTECTOMY Medical History Medical History [...] COVID-19 Vaccine ( season) 2024 Influenza Vaccine (Season Ended) 2025 HIB Vaccines Completed 10/03/1989 IPV Vaccines Completed [...] age to complete this topic Meningococcal B Vaccine Aged Out No l onger eligible based on patient's age to complete [...] age to complete this topic Care Teams Transactional Attorney Relationship Specialty Start Date End Date Maykel Beatty MD PCP - General Internal Medicine 03/12/20
== END 2025-01-26 17:05 | disposition home or self-care (01) ==
LOC: HO.HMCFM 10:37
PROVIDERS: PCP Family Medicine; Visit Provider Family Medicine
DX: R73.01 Impaired fasting glucose (principal); Z12.5 Encounter for screening for malignant neoplasm of prostate; S63.287A Dislocation of proximal interphalangeal joint of left little finger, initial encounter; R10.9 Unspecified abdominal pain

== ENCOUNTER → 2025-01-26 10:37 | Outpatient (BNVA) | payer BC, SELFPAY | PROVIDERS: PCP Family Medicine; Visit Provider Family Medicine | DX: Z13.89 Encounter for screening for other disorder (principal) ==

== ENCOUNTER 2025-01-30 08:06 | Outpatient (REF) | payer BC, SELFPAY ==
--- NOTE | ~2025-01-30 | XR_ITS ---
EXAMINATION: XR HAND, LEFT CLINICAL INFORMATION: M79.642 - Pain in left hand; pain fifth digit. COMPARISON: 12/24/2024 TECHNIQUE: PA, lateral, and oblique views of the left hand. FINDINGS: The bones and soft tissues are normal. No fracture. Alignment is anatomic. Joint spaces are maintained. No erosions or soft tissue calcifications. XR/XR hand LT min 3V IMPRESSION: Normal left hand. No significant interval change. Electronically signed by: Nba Tran MD 01/30/2025 12:22 PM EDT
--- OUTSIDE RECORDS SUMMARY | 2025-01-30 08:13 | XMS_ITS | Clinical Summary ---
Author Organization [facility] Address [address] [place] [address] Care Team Providers Care Asbestos Shingle Roofer Name Role Phone Maykel Beatty MD Primary Care Provider [phone] Surgical History Surgery Date Site/Laterality Comments OTHER SURGICAL HISTORY 1999 Right PROCEDURE: HISTORICAL EAR SURGERY; COMMENT: right, Dr. Burt Bacon HERNIA REPAIR 11/2019 Left PROCEDURE: HISTORICAL HERNIA REPAIR/ING CHOLECYSTECTOMY PROCEDURE: [place] LAPAROSCOPY SURG CHOLECYSTECTOMY Medical History Medical History [...] age to complete this topic Care Teams Asbestos Shingle Roofer Relationship Specialty Start Date End Date Maykel Beatty MD PCP - General Internal Medicine 03/12/20
== END 2025-01-30 08:07 | disposition home or self-care (01) ==
LOC: HO.HOSX 08:06
DX: M79.642 Pain in left hand (principal)
CPT/HCPCS: 73130

== ENCOUNTER 2025-01-30 11:22 | Outpatient (AMB) | payer BC, SELFPAY ==
--- NOTE | 2025-01-30 11:36 | MHC.OFFVIS ---
Intake Visit Reasons: OV-LT SF PIP dislocation DOI: 12/13/24-concerns Intake Note: Jacob is a 39 year old right hand dominant male who presents today for a follow up visit for his left small finger PIP dislocation DOI: 12/13/24 s/p playing soccer. Patient reports he has been having extreme pain in the left 5th digit. He expresses it has been swelling daily. One day he went for a run and it was extremely cold out, when he got back into the car after his run he says his right small finger was throbbing in pain with no injury to it. He is unable to fully bend his small finger down inward. He appears to have some bruising on the 5th PIP. Allergies shellfish Allergy (Intermediate, Uncoded 01/30/25 11:45) throat swelling HPI HPI OV-LT SF PIP dislocation DOI: 12/13/24-concerns: Details: Jacob is a 39 year old right hand dominant male who presents today for a follow up visit for his left small finger PIP dislocation DOI: 12/13/24 s/p playing soccer. Patient reports he has been having extreme pain in the left 5th digit. He expresses it has been swelling daily. One day he went for a run and it was extremely cold out, when he got back into the car after his run he says his right small finger was throbbing in pain with no injury to it. He is unable to fully bend his small finger down inward. He appears to have some bruising on the 5th PIP. 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 Neuro: Normal sensation of the tips of all digits of the left hand at this time Vascular: Cap refill brisk Pain: Tenderness to palpation about PIP joint of left small finger Pain with range of motion of the left small finger, particularly in the PIP joint ROM: Patient was able to make a closed fist with encouragement, but reports significant discomfort when doing so Pain with varus and valgus testing of the PIP joint of the left small finger, but Good endpoints and no concern for ligamentous laxity or tear Skin: No lacerations or abrasions. General: No ecchymosis, erythema, or evidence of infection. Psych: Appears grossly normal Affect normal Attitude cooperative Results Reviewed Results Reviewed: X-rays obtained in the office today and independently reviewed by me, Graham Caban PA-C, demonstrate no fracture or acute bony abnormality of the left small finger. Joint still reduced. Assessment & Plan Assessment & Plan (1) Dislocation of proximal interphalangeal joint of left little finger: Code(s): S63.287A - Dislocation of proximal interphalangeal joint of left little finger, initial encounter Category: Medical Plan Assessment & Plan: 1. Left small finger PIP dislocation DOI: 12/13/24 while playing soccer It sounds like he had at least 1 episode of repeat dislocation after the initial injury. I educated him about this condition His small finger PIP joint appears to be on exam today in clinic. We brynn tape the small finger to the ring finger and I educated him about brynn taping and activity modification. He knows he should not play basketball or be the goalie while playing soccer for a further 2 weeks He can brynn tape his finger and play soccer not as a goalie. He will work on gentle range of motion at home. Follow-up in [address] Oropeza for reassessment, sooner with any acute concerns Scribed for Kathrine Oropeza MD by Pablo Stevens, medical claims manager, on 12/24/24 at [ ], EST. Orders: Orders XR hand LT min 3V Today M79.642 - Pain in left hand Coding Level of Care Code Est Pt Level 3 (20614) Diagnoses Dislocation of proximal interphalangeal joint of left little finger S63.287A
--- OUTSIDE RECORDS SUMMARY | 2025-01-30 12:29 | XMS_ITS | Clinical Summary ---
[facility] Address [address] [place] [address] Care Team Providers Care Continuous Mining Operator Name Role Phone Maykel Beatty MD Primary Care Provider Surgical History Surgery Date Site/Laterality Comments OTHER SURGICAL HISTORY 1999 Right PROCEDURE: HISTORICAL EAR SURGERY; COMMENT: right, Dr. Burt Bacon HERNIA REPAIR 11/2019 Left PROCEDURE: HISTORICAL HERNIA REPAIR/ING CHOLECYSTECTOMY PROCEDURE: [place] LAPAROSCOPY SURG CHOLECYSTECTOMY Medical History Medical History [...] age to complete this topic Care Teams Continuous Mining Operator Relationship Specialty Start Date End Date Maykel Beatty MD PCP - General Internal Medicine 03/12/20
--- OUTSIDE RECORDS SUMMARY | 2025-01-30 12:29 | XMS_ITS | Encounter Summary ---
Author Organization [facility] Address [address] [place] [address] Care Team Providers Care Senior Linux Systems Engineer Name Role Phone Enrrique Coleman MD Primary Care Provider [phone] Maykel Beatty MD Primary Care Provider Unavail able Encounter Details Date Type Department Care Team Description 05/23/2014 Release of Information Medical Records [address] [place] [id number] Abstract, Provider Social History Tobacco Use Types Packs/Day Years Used Date Smoking Tobacco: Never Assessed Sex Assigned at Date Recorded Not on file documented as of this encounter Plan of Treatment Not on file documented as of this encounter Visit Diagnoses Not on filedocumented in this encounter Care Teams Senior Linux Systems Engineer Relationship Specialty Start Date End Date Enrrique Coleman MD [address] [place] [address] PCP - General Internal Medicine 04/22/14 03/11/20 Maykel Beatty MD [address] [place] [address] PCP - General Internal Medicine 03/12/20 documented as of this encounter
--- OUTSIDE RECORDS SUMMARY | 2025-01-30 12:29 | XMS_ITS | Encounter Summary ---
Author Organization [facility] Address [address] [place] [address] Care Team Providers Care Global Ceo Name Role Phone Enrrique Coleman MD Primary Care Provider [phone] Maykel Beatty MD Primary Care Provider Unavail able Encounter Details Date Type Department Care Team Description 05/14/2014 Transfer Records Medical Records [address] [place] [address] Abstract, Provider Social History Tobacco Use Types Packs/Day Years Used Date Smoking Tobacco: Never Assessed Sex Assigned at Date Recorded Not on file documented as of this encounter Plan of Treatment Not on file documented as of this encounter Visit Diagnoses Not on filedocumented in this encounter Care Teams Global Ceo Relationship Specialty Start Date End Date Enrrique Coleman MD [address] [place] [address] PCP - General Internal Medicine 04/22/14 03/11/20 Maykel Beatty MD [address] [place] [address] PCP - General Internal Medicine 03/12/20 documented as of this encounter
--- OUTSIDE RECORDS SUMMARY | 2025-01-30 12:29 | XMS_ITS | Encounter Summary ---
Author Organization [facility] Address [address] [place] [address] Care Team Providers Care Hydraulic Barker Operator Name Role Phone Enrrique Coleman MD Primary Care Provider [phone] Maykel Beatty MD Primary Care Provider Unavail able Encounter Details Date Type Department Care Team Description 11/20/2019 Jewel Bearing Polisher Report Medical Records [address] [place] [address] Burt Bacon MD Social History Tobacco Use Types Packs/Day Years Used Date Smoking Tobacco: Former Cigarettes Smokeless Tobacco: Never Alcohol Use Standard Drinks/Week Comments No 0 (1 standard drink = 0.6 oz pur e alcohol) Sex Assigned at Date Recorded Not on file documented as of this encounter Plan of Treatment Not on file documented as of this encounter Visit Diagnoses Not on filedocumented in this encounter Care Teams Hydraulic Barker Operator Relationship Specialty Start Date End Date Enrrique Coleman MD [address], [place] [id number] PCP - General Internal Medicine 04/22/14 03/11/20 Maykel Beatty MD [address] [place] [address] PCP - General Internal Medicine 03/12/20 documented as of this encounter
== END 2025-01-30 12:16 | disposition home or self-care (01) ==
LOC: HO.HOS 11:23
PROVIDERS: PCP Family Medicine
DX: S63.287A Dislocation of proximal interphalangeal joint of left little finger, initial encounter (principal)
CPT/HCPCS: 99213

== ENCOUNTER → 2025-01-30 11:33 | Outpatient (BNV) | payer BC, SELFPAY | PROVIDERS: Visit Provider Radiology Diagnostic Radiology | DX: M79.642 Pain in left hand (principal); M79.645 Pain in left finger(s) | CPT/HCPCS: 73130 ==

== ENCOUNTER 2025-02-10 10:20 | Outpatient (REF) | payer BC, SELFPAY ==
--- NOTE | ~2025-02-10 | XR_ITS ---
EXAMINATION: XR HAND 3 OR MORE VIEWS LEFT HISTORY: M79.642 - Pain in left hand COMPARISON: Comparison is made with the prior examination dated 01/30/2025. FINDINGS: Three views of the left hand are submitted. Osseous mineralization is normal. There is no fracture or dislocation. The joint spaces are preserved. The soft tissues are unremarkable. XR/XR hand LT min 3V IMPRESSION: Unremarkable examination of the left hand. Electronically signed by: Farrukh Mcadams MD 02/12/2025 07:02 AM EDT
--- OUTSIDE RECORDS SUMMARY | 2025-02-11 11:33 | XMS_ITS | Clinical Summary ---
Author Organization [facility] Address [address] [place] [address] Care Team Providers Care Lathe Set Up Person Name Role Phone Maykel Beatty MD Primary Care Provider [phone] Surgical History Surgery Date Site/Laterality Comments OTHER SURGICAL HISTORY 1999 Right PROCEDURE: HISTORICAL EAR SURGERY; COMMENT: right, Dr. Burt Bacon HERNIA REPAIR 11/2019 Left PROCEDURE: HISTORICAL HERNIA REPAIR/ING CHOLECYSTECTOMY PROCEDURE: [place] LAPAROSCOPY SURG CHOLECYSTECTOMY Medical History Medical History [...] age to complete this topic Care Teams Lathe Set Up Person Relationship Specialty Start Date End Date Maykel Beatty MD PCP - General Internal Medicine 03/12/20
== END 2025-02-10 10:21 | disposition home or self-care (01) ==
LOC: HO.HOSX 10:20
PROVIDERS: Visit Provider Orthopaedic Surgery
DX: M79.642 Pain in left hand (principal)
CPT/HCPCS: 73130

== ENCOUNTER 2025-02-10 13:33 | Outpatient (AMB) | payer BC, SELFPAY ==
[2025-02-10 13:47] VITALS: BMI 26.8
--- NOTE | 2025-02-10 13:47 | A.OFFVIS_ITS ---
Vital Signs 02/10/25 13:47 Height 6 ft 1 in Weight 203 lb BMI 26.8 Intake Visit Reasons: s/p L SF PIP dislocation ongoing pain Intake Note: Jacob 39 yr old male presents today for his follow up visit for his Left small finger PIP dislocation DOI: 12/13/24 while playing soccer. At his last visit with Cb Stevenson he was advise to brynn tape the small finger to the ring finger and modify his activities. Currently states his finger has some discoloration, limited ROM, swelling and pain. Allergies shellfish Allergy (Intermediate, Uncoded 02/10/25 13:51) throat swelling HPI HPI s/p L SF PIP dislocation ongoing pain: Details: Jacob is a 39 year old right hand dominant man who returns with complaints of left small finger pain. He initially dislocated his left small finger PIP joint on 12/13/24 while playing goalie in hockey. He pulled it back into place, and was subsequently seen in urgent care and given a finger splint. He complains of pain and swelling in his small finger, along with limited ROM & function of his finger. He says he had increased pain when out in the cold. He is frustrated by his lack of improvement, despite performing ROM exercises at home. He continues to have function, stiffness, and limited use of his small fin daina. He denies any numbness or tingling. 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 PIP joint stable on exam Initially he would bring his index, middle, and ring fingers partially to a fist, but keep his small finger extended He was alarmed at the tightness he felt extending from the dorsal aspect of his finger, down to his dorsal hand & forearm Mild tightness of the volar plate, perhaps a ~3 degree flexion contracture at the PIP joint We worked on ROM exercises today in clinic. Before leaving, he could actively bring all his fingers into a more coordinated fist Small finger PIP joint still mildly enlarged & swollen Radiographs: 3 views of the left hand, with attention to the small finger, were taken and viewed by me today in clinic. They show no fractures or dislocation, congruent sf pip, unchanged compared to radiographs from 01/30/25 Assessment & Plan Assessment & Plan (1) Dislocation of proximal interphalangeal joint of left little finger: Code(s): S63.287A - Dislocation of proximal interphalangeal joint of left little finger, initial encounter Category: Medical Plan Assessment & Plan: 1. Left small finger PIP dislocation DOI: 12/13/24 while playing soccer It sounds like he had at least one episode of repeat dislocation after the initial injury. No repeat dislocations since 12/13/24 I educated him about this condition No evidence of recurrent dislocation at this time We worked on ROM exercises today in clinic, and I had a long discussion with him concerning the importance of ROM exercises I discussed activity modification, he should work on ROM exercises & stretching exercises at home I ordered OT hand therapy to work on ROM, stretching, coordination, and normalizing function. 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 He will follow up in 4 weeks for a ROM check. Scribed for Kathrine Oropeza MD by Pablo Stevens, emergency medicine medical director, on 02/10/25 at 1:50 PM, EST. Orders: Orders XR hand LT min 3V Today M79.642 - Pain in left hand OT Evaluation and Treatment Today S63.287A - Dislocation of proximal i nterphalangeal joint of left little finger, initial encounter Coding Level of Care Code Est Pt Level 3 (12383) Diagnoses Dislocation of proximal interphalangeal joint of left little finger S63.287A
--- OUTSIDE RECORDS SUMMARY | 2025-02-10 15:38 | XMS_ITS | Encounter Summary ---
Author Organization [facility] Address [address] [place] [address] Care Team Providers Care Investment Representative Name Role Phone Enrrique Coleman MD Primary Care Provider [phone] Maykel Beatty MD Primary Care Provider Unavail able Encounter Details Date Type Department Care Team Description 04/10/2014 Walk In Clinic Visit Medical Records [address] [place] [address] Social History Tobacco Use Types Packs/Day Years Used Date Smoking Tobacco: Never Assessed Sex Assigned at Date Recorded Not on file documented as of this encounter Plan of Treatment Not on file documented as of this encounter Visit Diagnoses Not on filedocumented in this encounter Care Teams Investment Representative Relationship Specialty Start Date End Date Enrrique Coleman MD [address] [place] [address] PCP - General Internal Medicine 04/22/14 03/11/20 Maykel Beatty MD [address] [place] [address] PCP - General Internal Medicine 03/12/20 documented as of this encounter
--- OUTSIDE RECORDS SUMMARY | 2025-02-10 15:38 | XMS_ITS | Clinical Summary ---
Author Organization [facility] Address [address] [place] [address] Care Team Providers Care Inventory Control Coordinator Name Role Phone Maykel Beatty MD Primary Care Provider [phone] Surgical History Surgery Date Site/Laterality Comments OTHER SURGICAL HISTORY 1999 Right PROCEDURE: HISTORICAL EAR SURGERY; COMMENT: right, Dr. Burt Bacon HERNIA REPAIR 11/2019 Left PROCEDURE: HISTORICAL HERNIA REPAIR/ING CHOLECYSTECTOMY PROCEDURE: [place] LAPAROSCOPY SURG CHOLECYSTECTOMY Medical History Medical History [...] 06/03/2018 06/03/2008, 06/20/2000, 05/30/1993, Additional history exists COVID-19 Vaccine ( season) 2024 Influenza Vaccine [...] age to complete this topic Care Teams Inventory Control Coordinator Relationship Specialty Start Date End Date Maykel Beatty MD PCP - General Internal Medicine 03/12/20
--- OUTSIDE RECORDS SUMMARY | 2025-02-10 15:38 | XMS_ITS | Clinical Summary ---
Author Organization [facility] Address [address] [place] [address] Care Team Providers Care Green End Man Name Role Phone Maykel Beatty MD Primary Care Provider Unavail able Allergies No known active allergies Medications No known medications Active Problems Problem Noted Date Right inguinal hernia 07/03/2019 Fatigue 10/25/2017 Left inguinal hernia Overview: S/p repair Immunizations Name Administration Dates Next Due DTP 05/30/1993, 9,04/26/1988,11/26,1987 HIB 10/03/1989 Hepatitis B-3 Dose (<19yrs) 06/20/2000, 0,07/20/1999 MMR (Dvzavqd-Tijin-Aesuivp) 08/16/1998, 9 Meningococcal (Menactra) 05/12/2014,05/16/2006 Polio (IPV) 05/30/1993, 9,09/07/1988,11/26 TD (STATE SUPPLIED FOR ADULT S AND CHILDREN) 06/20/2000 Tdap 06/03/2008 Varicella Titre-Positive + 04/10/2014 Family History Medical History Relation Name Comments No Known Problems Father No Known Problems Mother Relation Name Status Comments Father Alive Mother Alive Social History Tobacco Use Types Packs/Day Years Used Date Smoking Tobacco: Former Cigarettes Smokeless Tobacco: Never Alcohol Use Standard Drinks/Week Comments No 0 (1 standard drink = 0.6 oz pur e alcohol) Sex Assigned at Date Recorded Not on file Last Filed Vital Signs Vital Sign Reading Time Taken Comments Blood Pressure 126/72 12/22/2019 3:38 PM EDT Pulse 72 12/22/2019 3:38 PM EDT Temperature 36.6 ??C (97.9 ??F) 12/18/2019 9:58 AM ES T Respiratory Rate 10 06/27/2019 1:02 PM EDT Oxygen Saturation - - Inhaled Oxygen Concentration - - Weight 96.3 kg (212 lb 3.2 oz) 12/22/2019 3:38 P M EDT Height 186.7 cm (6' 1.5 ) 12/22/2019 3:38 PM EDT Body Mass Index 27.62 12/22/2019 3:38 PM EDT Plan of Treatment Health Maintenance Due Date Last Done Comments Covid-19 Vaccine (#1) 1987 DTAP/TDAP/TD (7 - Td or Tdap) 06/03/2018, 06/20/2000, 05/30/1993, Additional history exists BASELINE HEALTH EXAM 18-39 10/25/2022 10/25/2017 CHOLESTEROL SCREENING 10/25/2022 10/25/2017 BMI CHECK/ADVISE 10/15/2024 10/25/2017 INFLUENZA (Season Ended) 2025 10/25/2017 (Refu sed) PNEUMOCOCCAL VACCINE FOR HIG H RISK PATIENTS (#1) 2052 Care Teams Green End Man Relationship Specialty Start Date End Date Maykel Beatty MD PCP - General Internal Medicine 03/12/20
== END 2025-02-10 14:11 | disposition home or self-care (01) ==
LOC: HO.HOS 13:34
PROVIDERS: PCP Family Medicine; Visit Provider Orthopaedic Surgery
DX: S63.287A Dislocation of proximal interphalangeal joint of left little finger, initial encounter (principal)
CPT/HCPCS: 99213

== ENCOUNTER → 2025-02-10 13:40 | Outpatient (BNV) | payer BC, SELFPAY | PROVIDERS: Visit Provider Radiology Diagnostic Radiology | DX: M79.642 Pain in left hand (principal) | CPT/HCPCS: 73130 ==

== ENCOUNTER 2025-02-12 14:34 | Outpatient (REF) | payer BC, SELFPAY ==
--- NOTE | ~2025-02-12 | US_ITS ---
EXAMINATION: US PELVIS LIMITED HISTORY: R10.9 - Unspecified abdominal pain COMPARISON: There are no prior studies for comparison. TECHNIQUE: Sonographic examination of the anterior pelvic wall was performed. FINDINGS: A mesh is seen from prior hernia repair. No definite recurrent hernia is identified. US/US pelvic limited IMPRESSION: No definite recurrent hernia is identified. Electronically signed by: Farrukh Mcadams MD 02/13/2025 07:23 AM EDT
--- OUTSIDE RECORDS SUMMARY | 2025-02-12 16:37 | XMS_ITS | Encounter Summary ---
Author Organization [facility] Address [address] [place] [address] Care Team Providers Care Ring Sewer Name Role Phone Enrrique Coleman MD Primary Care Provider [phone] Maykel Beatty MD Primary Care Provider Unavail able Encounter Details Date Type Department Care Team Description 05/14/2014 Transfer Records Medical Records [address] [place] [address] Abstract, Provider Social History Tobacco Use Types Packs/Day Years Used Date Smoking Tobacco: Never Assessed Sex Assigned at Date Recorded Not on file documented as of this encounter Plan of Treatment Not on file documented as of this encounter Visit Diagnoses Not on filedocumented in this encounter Care Teams Ring Sewer Relationship Specialty Start Date End Date Enrrique Coleman MD [address] [place] [address] PCP - General Internal Medicine 04/22/14 03/11/20 Maykel Beatty MD [address] [place] [address] PCP - General Internal Medicine 03/12/20 documented as of this encounter
--- OUTSIDE RECORDS SUMMARY | 2025-02-12 16:37 | XMS_ITS | Clinical Summary ---
Author Organization [facility] Address [address] [place] [address] Care Team Providers Care Byproducts Extractor Name Role Phone Maykel Beatty MD Primary Care Provider [phone] Surgical History Surgery Date Site/Laterality Comments OTHER SURGICAL HISTORY 1999 Right PROCEDURE: HISTORICAL EAR SURGERY; COMMENT: right, Dr. Burt Bacon HERNIA REPAIR 11/2019 Left PROCEDURE: HISTORICAL HERNIA REPAIR/ING CHOLECYSTECTOMY PROCEDURE: [place] LAPAROSCOPY SURG CHOLECYSTECTOMY Medical History Medical History [...] age to complete this topic Care Teams Byproducts Extractor Relationship Specialty Start Date End Date Maykel Beatty MD PCP - General Internal Medicine 03/12/20
--- OUTSIDE RECORDS SUMMARY | 2025-02-12 16:37 | XMS_ITS | Encounter Summary ---
Author Organization [facility] Address [address] [place] [address] Care Team Providers Care Ferryboat Captain Name Role Phone Enrrique Coleman MD Primary Care Provider [phone] Maykel Beatty MD Primary Care Provider Unavail able Encounter Details Date Type Department Care Team Description 11/20/2019 Set Up Operator Report Medical Records [address] [place] [address] Burt Bacon MD Social History Tobacco Use [...] on filedocumented in this encounter Care Teams Ferryboat Captain Relationship Specialty Start Date End Date Enrrique Coelman MD [address] [place], [place] [id number] PCP - General Internal Medicine 04/22/14 03/11/20 Maykel Beatty MD [address] [place] [address] PCP - General Internal Medicine 03/12/20 documented as of this encounter
--- OUTSIDE RECORDS SUMMARY | 2025-02-12 16:37 | XMS_ITS | Encounter Summary ---
Author Organization [facility] Address [address] [place] [address] Care Team Providers Care Border Measurer Name Role Phone Enrrique Coleman MD Primary Care Provider [phone] Maykel Beatty MD Primary Care Provider Unavail able Encounter Details Date Type Department Care Team Description 12/03/2019 [facility] Medical Records [address] [place] [address] Kevin Hewitt MD Social History Tobacco Use Types Packs/Day [...] on filedocumented in this encounter Care Teams Border Measurer Relationship Specialty Start Date End Date Enrrique Coleman MD [address] [place], [place] [id number] PCP - General Internal Medicine 04/22/14 03/11/20 Maykel Beatty MD [address] [place] [address] PCP - General Internal Medicine 03/12/20 documented as of this encounter
== END 2025-02-12 14:35 | disposition home or self-care (01) ==
LOC: HO.US 14:34
PROVIDERS: PCP Family Medicine; Visit Provider Family Medicine
DX: R10.9 Unspecified abdominal pain (principal)
CPT/HCPCS: 76857

== ENCOUNTER → 2025-02-12 14:36 | Outpatient (BNV) | payer BC, SELFPAY | PROVIDERS: PCP Family Medicine; Visit Provider Radiology Diagnostic Radiology | DX: R10.9 Unspecified abdominal pain (principal) | CPT/HCPCS: 76857 ==

== ENCOUNTER 2025-02-25 14:07 | Outpatient (AMB) | payer BC, SELFPAY ==
--- OUTSIDE RECORDS SUMMARY | 2025-02-25 14:13 | XMS_ITS | Clinical Summary ---
Author Organization [facility] Address [address] [place] [address] Care Team Providers Care Wardrobe Custodian Name Role Phone Maykel Beatty MD Primary Care Provider [phone] Surgical History Surgery Date Site/Laterality Comments OTHER SURGICAL HISTORY 1999 Right PROCEDURE: HISTORICAL EAR SURGERY; COMMENT: right, Dr. Burt Bacon HERNIA REPAIR 11/2019 Left PROCEDURE: HISTORICAL HERNIA REPAIR/ING CHOLECYSTECTOMY PROCEDURE: [place] LAPAROSCOPY SURG CHOLECYSTECTOMY Medical History Medical History [...] age to complete this topic Care Teams Wardrobe Custodian Relationship Specialty Start Date End Date Maykel Beatty MD PCP - General Internal Medicine 03/12/20
--- NOTE | 2025-02-25 14:14 | A.OFFVIS_ITS ---
Intake Visit Reasons: BASS STRING WINDER/vasectomy consult Intake Note: Patient is present for VASECTOMY CONSULT Urology Medication:NONE Antibiotic Allergy:NONE Blood Thinner:NONE Claim Processing Specialist Required: No Allergies shellfish Allergy (Intermediate, Uncoded 02/25/25 14:15) throat swelling HPI Comments Details: Jacob is a very pleasant pleasant male. He is a patient of Dr Groves. He is seen for the following urologic condition - anxiety about health - Vasectomy evaluation Vasectomy evaluation The patient presents for vasectomy consultation. He is currently He has fathered - 1 child, with a single partner. The youngest child is - 11 years old. His partner is aware and permissive for a vasectomy Current form of control is hormones. 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 Patient education has been provided via AUA video, via printed information, risks of failure, recovery time, bruising and potential pain syndrome have been stressed Discussion today focused on the presence of vasectomy and the risks, benefits and alternatives that are available. Vasectomy as intended as a permanent form of control. Printed information and literature was provided to the patient. Overall there is a one in 2500 failure rate. This can occur at any time after vasectomy. Risks were discussed highlighting hematoma, spermatocele, epididymal congestion, development of sperm antibodies, and development of chronic pain estimated between 1-5%. The procedure was reviewed in detail. Anatomical diagrams of the male genitalia were used to explain the location of the vas deferens. The vas deferens will be transected, the proximal end will be cauterized, a metal clip would be applied to separate the 2 vas deferens ends. It was explained the procedure will be done in the office and takes approximately 10-15 minutes. Less common problems that arise with vasectomy include hematoma, bleeding, allergic reaction to anesthetic, epididymal infection, epididymal congestion, scrotal discomfort, spermatic leak, spermatic granuloma and the possibility of antisperm antibodies. He understands these risks and wishes to proceed. Consent was signed at the office today. He also understands that it takes 12 weeks for sperm to fully clear the system. He will need to provide a semen sample at 12 weeks and if this is not clear a 2nd sample at 16 weeks. Medical clearance to stop using protection will only be provided if he satisfies published criteria for sperm clearance. 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 Current occupational exposures/hazards: No Cognitive needs: No Hearing needs: No Vision needs: No Review of Systems Const Denies chills and Denies fever(s) Card Reports no additional complaints and Denies syncope Resp Denies cough GI Denies abdominal pain and Denies heartburn Reports as per HPI and Denies change in libido Neuro Denies syncope Psych Denies change in libido Endo Denies change in libido Physical Exam Const General: cooperative, healthy appearing, comfortable and no acute distress Orientation/consciousness: patient oriented x3 HEENT Face and sinus: Yes normal facial exam Mouth: moist mucous membranes Neck Neck: Yes normal visual inspection, Yes full ROM and Yes trachea midline Chest Chest palpation & inspection: normal inspection of the chest Resp Effort & Inspection: normal respiratory effort, able to speak in complete sentences and no respiratory distress GI Inspection: Yes normal to inspection Back/Spine/Pelvis Cervical Spine: normal cervical lordosis Thoracic/Lumbar Spine: thoracic and lumbar spine normal to inspection Skin General skin exam: no rashes or lesions noted Neuro General: patient oriented x3, gait normal, tone normal and moves all extremities Extrem General: Yes normal to inspection and Yes capillary refill normal Assessment & Plan Assessment & Plan (1) Anxiety about health: Code(s): R45.89 - Other symptoms and signs involving emotional state Category: Medical Plan Planned vasectomy Medications: New oxycodone-acetaminophen 5-325 mg (Percocet) Partial Fill upon patient request. 1 tab PO Q8H PRN 7 tabs 0RF pain R45.89 - Other symptoms and signs involving emotional state diazepam Take medication after arrival at office 2 mg PO BID 1 day PRN 2 tabs 0RF anxiety R45.89 - Other symptoms and signs involving emotional state Patient Instructions: This note is constructed using voice recognition software. While every effort has been made to ensure accuracy supervisor type bar and segment errors may have been included. Imaging studies, laboratory and physical exam results were discussed and reviewed in detail. No major barriers to patient understanding were identified. An opportunity to ask questions regarding the treatment plan was provided. All questions were answered. The patient expressed understanding and agreement with the above treatment plan. The patient is aware they should contact our office by phone for worsening of their current condition or the appearance of new urologic symptoms. Compliance is encouraged with any medications and followup testing that is ordered. It is a privilege to participate in the urologic care of your patient. If you have any questions or concerns regarding treatment for the above conditions, or other urologic issues, please do not hesitate to contact me. The office telephone contact is [phone]. Sincerely, Dr Daron Fitzgerald MD, [facility] - Urology Compassionate Specialist Care for the Genitourinary System Coding Level of Care Code New Pt Level 4 (68817) Diagnoses Anxiety about health R45.89
== END 2025-02-25 15:34 | disposition home or self-care (01) ==
LOC: HO.HUSH 14:08
PROVIDERS: PCP Family Medicine; Visit Provider Urology
DX: R45.89 Other symptoms and signs involving emotional state (principal)
CPT/HCPCS: 99204

== ENCOUNTER → 2025-02-25 14:07 | Outpatient (BNVA) | payer BC, SELFPAY | PROVIDERS: PCP Family Medicine; Visit Provider Urology ==

== ENCOUNTER 2025-04-07 14:41 | Outpatient (AMB) | payer BC, SELFPAY ==
--- NOTE | 2025-04-07 14:57 | MHC.OFFVIS ---
Intake Visit Reasons: vasectomy Intake Note: Patient is present for VASECTOMY Urology Medication:NONE Antibiotic Allergy:NONE Blood Thinner:NONE Clerk Stenographer Required: No Allergies shellfish Allergy (Intermediate, Uncoded 04/07/25 15:08) throat swelling HPI Comments Details: Jacob is a very pleasant pleasant male. He is a patient of Dr Groves. He is seen for the following urologic condition - anxiety about health - Vasectomy procedure Vasectomy procedure The patient presents for vasectomy procedure. He is currently He has fathered - 1 child, with a single partner. The youngest child is - 11 years old. His partner is aware and permissive for a vasectomy Current form of control is hormones. 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 Current occupational exposures/hazards: No Cognitive needs: No Hearing needs: No Vision needs: No Review of Systems Const Denies chills and Denies fever(s) Card Reports no additional complaints and Denies syncope Resp Denies cough GI Denies abdominal pain and Denies heartburn Reports as per HPI and Denies change in libido Neuro Denies syncope Psych Denies change in libido Endo Denies change in libido Physical Exam Const General: cooperative, healthy appearing, comfortable and no acute distress Orientation/consciousness: patient oriented x3 HEENT Face and sinus: Yes normal facial exam Mouth: moist mucous membranes Neck Neck: Yes normal visual inspection, Yes full ROM and Yes trachea midline Chest Chest palpation & inspection: normal inspection of the chest Resp Effort & Inspection: normal respiratory effort, able to speak in complete sentences and no respiratory distress GI Inspection: Yes normal to inspection Back/Spine/Pelvis Cervical Spine: normal cervical lordosis Thoracic/Lumbar Spine: thoracic and lumbar spine normal to inspection Skin General skin exam: no rashes or lesions noted Neuro General: patient oriented x3, gait normal, tone normal and moves all extremities Extrem General: Yes normal to inspection and Yes capillary refill normal Office Procedures Vasectomy Details: Preoperative diagnosis: Anxiety regarding Postoperative diagnosis: Anxiety regarding unplanned Procedure: Bilateral vasectomy Informed consent had been completed. Preoperative and postoperative instructions were provided to the patient. The patient has transportation to home identified at the completion of the procedure. Anti-anxiolytic prescription medication had been taken after consent verification and all questions answered. Tylenol with Codeine pain medication was also provided. The penis was elevated using a rubber band that was attached to the patient's shirt. Both vasa were palpated through the skin using a 3 finger technique and the penoscrotal junction was prepped with Betadine. After Betadine application the left vas was elevated using a 3 finger grasping technique. 1% lidocaine was used to create a subdermal bubble. Further anesthetic was then advanced using the 25-gauge needle along the vasa in a proximal fashion. Approximately 2 minutes were allowed to for local anesthetic uptake. Using the sharp spreading instrument the scrotal skin was spread longitudinally in line with the vasa until the subdermal layer had been divided. The vasa was then elevated from the scrotum using a ring clamp. Care was taken to elevate the superior portion of the vasa by rotating the ring clamp in a caudad direction. The battery powered cautery was used to divide the vasal sheath in a longitudinal direction on the exposed vasa and to strip the vasal sheath from the vasa. A 2nd narrower ring clamp was placed on the exposed vas and used to lift the vas from the vasal sheath. so it grasped the elevated vas. The cautery was used to divide vasal attachments and allow full exposure of a small loop of vasa. The sharp spreading instrument was then used to create a tunnel under the vasa and spread to allow the blood vessels of the vasa to retract from the vasa. A mosquito clamp was placed on the proximal portion of the vas. The battery-powered cautery was used to make a partial division in the proximal vas and then inserted in order to cauterize the proximal end of the vas. This was then cut and allowed to retract into the vasal sheath. The mosquito was then used to twist the vasa 180 degrees creating a fascial interposition. Using a 4-0 chromic suture the fascial interposition was sutured closed. The distal portion of the vas was then cut in order to obtain a segment of vasa. The vasa were allowed to retract back into the scrotum. A small snap was then used to approximate the skin edges and allow hemostasis without placement of a suture. A similar procedure was repeated on the right side. He tolerated the procedure well. Triple antibiotic was applied. A gauze was applied. An ice pack was applied to assist with minimizing swelling. Postoperative instructions were confirmed. He understands the need to continue to use control methods. A semen sample should be brought for inspection under the microscope in 10-12 weeks. CPT 77122 Vasectomy performed by: Daron Fitzgerald Informed consent given: Yes Informed consent signed: Yes Time out checklist: patient, procedure, site marked/identified, positioning of patient, supplies available, allergies confirmed and team agrees on procedure Anesthetic used: other Specimens: vas segments not sent to pathology [id number] - Vasectomy Office Meds lidocaine (PF) 10 mg/mL (1 %) injection solution Performing Provider: Daron Fitzgerald MD [place] [facility] Administered by: Daron Fitzgerald MD on 04/07/25 16:49 Dose Route Admin Location Dispensed Lot Number Expiration Date ND Tram Operator 10 mL Infiltration 10 mL Total Dispensed Waste 10 mL 0 % Assessment & Plan Assessment & Plan (1) Anxiety about health: Code(s): R45.89 - Other symptoms and signs involving emotional state Category: Medical Plan Three-month follow-up Orders: Orders AMB Vasectomy Today R45.89 - Other symptoms and signs involving emotional state Patient Instructions: This note is constructed using voice recognition software. While every effort has been made to ensure accuracy top bottom attaching machine operator errors may have been included. Imaging studies, laboratory and physical exam results were discussed and reviewed in detail. No major barriers to patient understanding were identified. An opportunity to ask questions regarding the treatment plan was provided. All questions were answered. The patient expressed understanding and agreement with the above treatment plan. The patient is aware they should contact our office by phone for worsening of their current condition or the appearance of new urologic symptoms. Compliance is encouraged with any medications and followup testing that is ordered. It is a privilege to participate in the urologic care of your patient. If you have any questions or concerns regarding treatment for the above conditions, or other urologic issues, please do not hesitate to contact me. The office telephone contact is [phone]. Sincerely, Dr Daron Fitzgerald MD, [facility] - Urology Compassionate Specialist Care for the Genitourinary System Coding Level of Care Code Procedure Only Diagnoses Anxiety about health R45.89 CPT Codes Office Procedure - CPT: 28522 - Vasectomy ([id number])
--- OUTSIDE RECORDS SUMMARY | 2025-04-07 17:53 | XMS_ITS | Clinical Summary ---
[facility] Address [address] [place] [address] Care Team Providers Care Orthopedics Pediatric Physician Name Role Phone Maykel Beatty MD Primary Care Provider [phone] Surgical History Surgery Date Site/Laterality Comments OTHER SURGICAL HISTORY 1999 Right PROCEDURE: HISTORICAL EAR SURGERY; COMMENT: right, Dr. Burt Bacon HERNIA REPAIR 11/2019 Left PROCEDURE: HISTORICAL HERNIA REPAIR/ING CHOLECYSTECTOMY PROCEDURE: [place] LAPAROSCOPY SURG CHOLECYSTECTOMY Medical History Medical History [...] age to complete this topic Care Teams Orthopedics Pediatric Physician Relationship Specialty Start Date End Date Maykel Beatty MD PCP - General Internal Medicine 03/12/20
== END 2025-04-07 16:01 | disposition home or self-care (01) ==
LOC: HO.HUSH 14:42
PROVIDERS: PCP Family Medicine; Visit Provider Urology
DX: Z30.2 Encounter for sterilization (principal); R45.89 Other symptoms and signs involving emotional state
CPT/HCPCS: 55250

== ENCOUNTER → 2025-04-07 14:41 | Outpatient (BNVA) | payer BC, SELFPAY | PROVIDERS: PCP Family Medicine; Visit Provider Urology | DX: Z30.2 Encounter for sterilization (principal); R45.89 Other symptoms and signs involving emotional state | CPT/HCPCS: 55250; J2003 ==

== ENCOUNTER 2025-06-11 07:33 | Outpatient (RCR) | payer BC, SELFPAY ==
--- NOTE | 2025-02-19 09:48 | MHC.OT.EP ---
[address] [phone] Occupational Therapy Plan of Care Patient Name: Jacob Arango Date of Evaluation: 02/19/25 Diagnosis: s/p left small finger PIP dislocation Pain Location: Left small finger PIP joint Current 5/10 Worst: 8/10 with pain radiating to ulnar forearm Pain Score: 5 Pain Scale Used: Numeric (0 - 10) Aggravating Factors: Forceful grasp, typing, playing guitar Alleviating Factors: ibuprofen Assessment: Jacob is a 39 y/o right-hand dominant male referred to OT s/p left small finger PIP dislocation sustained on 12/13/24. Imaging on 02/10 confirmed no fracture or dislocation. Pt presents with persistent pain, edema, and decreased ROM at the left small finger PIP joint, as well as mild deviation and a ~5? flexion contracture. Financial Writer strength on the L is reduced compared to the right (70# vs. 100#). Quick DASH score is 45.5%, indicating moderate functional limitations. Patient would benefit from skilled OT to address edema, improve joint mobility and alignment, reduce pain, and increase functional use of the hand with a goal of returning to pain free typing and playing guitar. Frequency and Duration: The patient will be seen 2x/wk for 4 weeks Short Term Goals: Decrease small finger pain <3/10 with functional tasks Improve small finger active PIP flexion to within 1 cm of palm during composite fist to improve fxnal grasp IND with [facility] Senior Living Goals: Full composite flexion of the left hand with minimal deviation Increase sugar cane farm manager strength to >85# on the left hand Resume guitar playing for at least 15 minutes with minimal discomfort Quick DASH score <20% indicating increased hand function Treatment Plan: Therapeutic Exercise Therapeutic Activity Home Exercise Program Patient Education Ultrasound MHP Cold Packs Joint Mobilization Soft Tissue Mobilization 2x/wk for 4 weeks Electronically Signed By: Vicky Levine MS OTR/L Please Sign and return to therapist. Thank you once again for your referral.
== END 2025-09-30 11:01 | disposition home or self-care (01) ==
LOC: HO.OTS 07:33
PROVIDERS: Visit Provider Orthopaedic Surgery
DX: S63.287D Dislocation of proximal interphalangeal joint of left little finger, subsequent encounter (principal)
CPT/HCPCS: 97035; 97110; 97140; 97165; 97530

== ENCOUNTER 2025-07-08 15:05 | Outpatient (AMB) | payer BC, SELFPAY ==
--- NOTE | 2025-07-08 15:06 | A.OFFVIS_ITS ---
Intake Visit Reasons: 12 w semen analysis Intake Note: Patient is present for POST-VASECTOMY Urology Medication:NONE Antibiotic Allergy:NONE Blood Thinner:NONE Wage Conciliator Required: No Accompanied by: Self / Same As Patient Allergies shellfish Allergy (Intermediate, Uncoded 04/07/25 15:08) throat swelling HPI Comments Details: Jacob is a very pleasant pleasant male. He is a patient of Dr Groves. He is seen for the following urologic condition - anxiety about health - Vasectomy procedure No sperm seen on high-powered feel evaluation Minimal symptoms following procedure P.r.n. follow-up Vasectomy procedure The patient presents for vasectomy procedure. He is currently He has fathered - 1 child, with a single partner. The youngest child is - 11 years old. His partner is aware and permissive for a vasectomy Current form of control is hormones. Currently works as [employer] 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 Current occupational exposures/hazards: No Cognitive needs: No Hearing needs: No Vision needs: No Review of Systems Const Denies chills and Denies fever(s) Card Reports no additional complaints and Denies syncope Resp Denies cough GI Denies abdominal pain and Denies heartburn Reports as per HPI and Denies change in libido Neuro Denies syncope Psych Denies change in libido Endo Denies change in libido Physical Exam Const General: cooperative, healthy appearing, comfortable and no acute distress Orientation/consciousness: patient oriented x3 HEENT Face and sinus: Yes normal facial exam Mouth: moist mucous membranes Neck Neck: Yes normal visual inspection, Yes full ROM and Yes trachea midline Chest Chest palpation & inspection: normal inspection of the chest Resp Effort & Inspection: normal respiratory effort, able to speak in complete sentences and no respiratory distress GI Inspection: Yes normal to inspection Back/Spine/Pelvis Cervical Spine: normal cervical lordosis Thoracic/Lumbar Spine: thoracic and lumbar spine normal to inspection Skin General skin exam: no rashes or lesions noted Neuro General: patient oriented x3, gait normal, tone normal and moves all extremities Extrem General: Yes normal to inspection and Yes capillary refill normal Assessment & Plan Assessment & Plan (1) Anxiety about health: Code(s): R45.89 - Other symptoms and signs involving emotional state Category: Medical Plan P.r.n. follow-up Patient Instructions: This note is constructed using voice recognition software. While every effort has been made to ensure accuracy high school social studies tutor errors may have been included. Imaging studies, laboratory and physical exam results were discussed and reviewed in detail. No major barriers to patient understanding were identified. An opportunity to ask questions regarding the treatment plan was provided. All questions were answered. The patient expressed understanding and agreement with the above treatment plan. The patient is aware they should contact our office by phone for worsening of their current condition or the appearance of new urologic symptoms. Compliance is encouraged with any medications and followup testing that is ordered. It is a privilege to participate in the urologic care of your patient. If you have any questions or concerns regarding treatment for the above conditions, or other urologic issues, please do not hesitate to contact me. The office telephone contact is [phone]. Sincerely, Dr Daron Fitzgerald MD, [facility] - Urology Compassionate Specialist Care for the Genitourinary System Coding Level of Care Code Est Pt Level 3 (10871) Diagnoses Anxiety about health R45.89
--- OUTSIDE RECORDS SUMMARY | 2025-07-08 17:35 | XMS_ITS | Encounter Summary ---
Author Organization [facility] Address [address] [place] [address] Care Team Providers Care Commercial Sewing Instructor Name Role Phone Enrrique Coleman MD Primary Care Provider [phone] Maykel Beatty MD Primary Care Provider Unavail able Encounter Details Date Type Department Care Team Description 12/03/2019 [facility] Medical Records [address] [place] [address] Kevin Hewitt MD Social History Tobacco Use [...] on filedocumented in this encounter Care Teams Commercial Sewing Instructor Relationship Specialty Start Date End Date Enrrique Coleman MD [address], [place] [id number] PCP - General Internal Medicine 04/22/14 03/11/20 Maykel Beatty MD [address] [place] [address] PCP - General Internal Medicine 03/12/20 documented as of this encounter
--- OUTSIDE RECORDS SUMMARY | 2025-07-08 17:35 | XMS_ITS | Encounter Summary ---
Author Organization [facility] Address [address] [place] [address] Care Team Providers Care High Density Talc Coater Operator Name Role Phone Enrrique Coleman MD Primary Care Provider [phone] Maykel Beatty MD Primary Care Provider Unavail able Encounter Details Date Type Department Care Team Description 11/20/2019 Gynecology Teacher Report Medical Records [address] [place] [address] Burt Bacon MD Social History Tobacco Use [...] on filedocumented in this encounter Care Teams High Density Talc Coater Operator Relationship Specialty Start Date End Date Enrrique Coleman MD [address], [place] [id number] PCP - General Internal Medicine 04/22/14 03/11/20 Maykel Beatty MD [address] [place] [address] PCP - General Internal Medicine 03/12/20 documented as of this encounter
--- OUTSIDE RECORDS SUMMARY | 2025-07-08 17:35 | XMS_ITS | Clinical Summary ---
Author Organization [facility] Address [address] [place] [address] Care Team Providers Care Salvage Supervisor Name Role Phone Maykel Beatty MD Primary Care Provider [phone] Surgical History Surgery Date Site/Laterality Comments OTHER SURGICAL HISTORY 1999 Right PROCEDURE: HISTORICAL EAR SURGERY; COMMENT: right, Dr. Burt Bacon HERNIA REPAIR 11/2019 Left PROCEDURE: HISTORICAL HERNIA REPAIR/ING CHOLECYSTECTOMY PROCEDURE: [place] LAPAROSCOPY SURG CHOLECYSTECTOMY Medical History Medical History [...] 06/03/2018 06/03/2008, 06/20/2000, 05/30/1993, Additional history exists Depression Screening 10/15/2024 COVID-19 Vaccine ( season) 2025 Influenza Vaccine (#1) 2025 HIB Vaccines Completed 10/03/1989 IPV Vaccines [...] 5 Years) and At-Risk Patients (6 to 49 Years) Aged Out No longer eligible based on patient's age to complete this topic RSV Immunization Patients Under 20 months Aged Out No longer eligible based on patient's age to complete this topic Varicella Vaccines Aged Out No longer eligible based on patient's age to complete this topic Care Teams Salvage Supervisor Relationship Specialty Start Date End Date Maykel Beatty MD PCP - General Internal Medicine 03/12/20
--- OUTSIDE RECORDS SUMMARY | 2025-07-08 17:35 | XMS_ITS | Clinical Summary ---
Author Organization [facility] Address [address] [place] [address] Care Team Providers Care Stem Threshing Machine Operator Name Role Phone Maykel Beatty MD Primary Care Provider Unavail able Allergies No known active allergies Medications No known medications Active Problems Problem Noted Date Right inguinal hernia 07/03/2019 Fatigue 10/25/2017 Left inguinal hernia Overview: S/p repair Immunizations Name Administration Dates Next Due DTP 05/30/1993, 9,04/26/1988,11/26,1987 HIB 10/03/1989 Hepatitis B-3 Dose (<19yrs) 06/20/2000, 0,07/20/1999 MMR ([id number]) 08/16/1998, 9 Meningococcal (Menactra) 05/12/2014,05/16/2006 Polio (IPV) [...] 72 12/22/2019 3:38 PM EDT Temperature 36.6 C (97.9 F) 12/18/2019 9:58 AM EST Respiratory Rate 10 06/27/2019 1:02 PM EDT [...] 10/25/2022 10/25/2017 BMI CHECK/ADVISE 10/15/2024 10/25/2017 INFLUENZA (#1) 2025 10/25/2017 (Refused) PNEUMOCOCCAL VACCINE FOR HIG H RISK PATIENTS (#1) 2052 Care Teams Stem Threshing Machine Operator Relationship Specialty Start Date End Date Maykel Beatty MD PCP - General Internal Medicine 03/12/20
== END 2025-07-08 15:44 | disposition home or self-care (01) ==
LOC: HO.HUSH 15:06
PROVIDERS: PCP Family Medicine; Visit Provider Urology
DX: R45.89 Other symptoms and signs involving emotional state (principal)
CPT/HCPCS: 99213